=== PATIENT | male | born 1975 | race American Indian/Alaskan Native ===

== ENCOUNTER 2022-04-13 09:59 | Emergency (ER) | payer OTHER ==
[2022-04-13 15:02] VITALS: BP 159/85
--- NOTE | 2022-04-13 15:12 | Emergency Department Report ---
ED General Adult HPI - General Chief complaint: Rectal Pain Stated complaint: BLOOD IN STOOL Time Seen by Provider: 04/13/22 14:56 Source: patient Mode of arrival: Ambulatory Limitations: No Limitations - History of Present Illness Initial comments: 46-year-old black male with no past medical history presents to the emergency department for evaluation of blood in his stool along with rectal pain. He states that over the past 5 years, he has had intermittent pain with bowel movements associated with blood in stool. He states that he has seen an ext ernal hemorrhoid to his rectal area, tried [id number] hemorrhoid creams but has not had any improvement. He states that hemorrhoid, and bloody stools are intermittent and he is not currently having any of those symptoms but did have them several days ago. He denies abdominal pain, nausea, vomiting, diarrhea, fever, and pain with discharge. MD Complaint: Rectal pain -: Gradual, year(s) (5) Severity scale (0 -10): 0 Associated Symptoms: denies: confusion, diaphoresis, fever/chills, headaches, loss of appetite, malaise, nausea/vomiting, shortness of breath, weakness Treatments Prior to Arrival: other (Preparation H) - Related Data Previous Rx's Medication Instructions Recorded Last Taken Type Pramoxine 1% [Proctofoam] 1 applicatio TP 5XD PRN #10 foam 04/13/22 Unknown Rx Allergies Allergy/AdvReac Type Severity Reaction Status Date / Time No Known Allergies Allergy Verified 04/13/22 15:01 ED Review of Systems ROS: Stated complaint: BLOOD IN STOOL Other details as noted in HPI Comment: All other systems reviewed and negative Constitutional: denies: chills, fever Eyes: denies: vision change ENT: denies: congestion Respiratory: denies: orthopnea, shortness of breath, SOB with exertion, SOB at rest, stridor, wheezing Cardiovascular: denies: chest pain, palpitations Gastrointestinal: denies: abdominal pain, nausea, vomiting Genitourinary: denies: urgency, dysuria, frequency, hematuria, discharge, testicular pain Musculoskeletal: denies: back pain Skin: denies: rash, lesions Neurological: denies: headache, weakness, numbness, paresthesias, abnormal gait Hematological/Lymphatic: denies: easy bleeding, easy bruising ED Past Medical Hx - Social History Smoking Status: Never Smoker Substance Use Type: None - Medications Home Medications: Home Medications Medication Instructions Recorded Confirmed Last Taken Type Pramoxine 1% [Proctofoam] 1 applicatio TP 5XD PRN #10 foam 04/13/22 Unknown Rx ED Physical Exam - General Limitations: No Limitations General appearance: alert, in no apparent distress - Head Head exam: Present: atraumatic, normocephalic - Eye Eye exam: Present: normal appearance. Absent: conjunctival injection - Neck Neck exam: Present: normal inspection, full ROM. Absent: tenderness, meningismus, lymphadenopathy - Respiratory Respiratory exam: Present: normal lung sounds bilaterally. Absent: respiratory distress, wheezes, rales, rhonchi, stridor, chest wall tenderness - Cardiovascular Cardiovascular Exam: Present: regular rate, normal heart sounds - GI/Abdominal GI/Abdominal exam: Present: soft, normal bowel sounds. Absent: distended, tenderness, guarding, rebound, rigid - Rectal Rectal exam: Present: deferred (Patient denies any symptoms at this time.) - Extremities Exam Extremities exam: Present: normal inspection - Back Exam Back exam: Present: normal inspection. Absent: CVA tenderness (R), CVA tenderness (L) - Psychiatric Psychiatric exam: Present: normal affect, normal mood - Skin Skin exam: Present: warm, dry, intact, normal color ED Course Vital Signs 04/13/22 04/13/22 04/13/22 10:05 14:57 14:59 Temperature 98.6 F 98.4 F 98.6 F Pulse Rate 84 79 79 Respiratory 18 18 18 Rate Blood Pressure 159/85 Blood Pressure 170/107 119/85 [Right] O2 Sat by Pulse 100 100 100 Oximetry ED Medical Decision Making - Medical Decision Making 46-year-old black male with no past medical history presents to the emergency department for evaluation of blood in his stool along with rectal pain. He states that over the past 5 years, he has had intermittent pain with bowel movements associated with blood in stool. He states that he has seen an external hemorrhoid to his rectal area, tried [id number] hemorrhoid creams but has not had any improvement. He states that hemorrhoid, and bloody stools are intermittent and he is not currently having any of those symptoms but did have them several days ago. He denies abdominal pain, nausea, vomiting, diarrhea, fever, and pain with discharge. Patient advised to apply [id number] witch jose roberto to the area and take medication as prescribed. He is advised to follow-up with primary care provider or at the hemorrhoid treatment center in [place], [place]. He is advised to return to the emergency department for any concerning symptoms. He verbalizes understanding of and agreement with plan of care. Critical care attestation.: If time is entered above; I have spent that time in minutes in the direct care of this critically ill patient, excluding procedure time. ED Disposition Clinical Impression: External hemorrhoid, Rectal pain Disposition: HOME / SELF CARE / HOMELESS Is pt being admited?: No Does the pt Need Aspirin: No Condition: Stable Instructions: Hemorrhoids, [id number] Additional Instructions: Try applying witch jose roberto to the area. Take medications as prescribed. Follow- up with primary care for further evaluation and management. Return to the emergency department as needed. Prescriptions: Pramoxine 1% [Proctofoam] 1 applicatio TP 5XD PRN #10 foam PRN Reason: Hemorrhoids Referrals: [facility]agon[facility] [Other] - 3-5 Days Forms: Work/School Release Form(ED) Time of Disposition: 15:09
== END 2022-04-13 15:47 | disposition home or self-care (01) ==
LOC: ED 09:59
DX: K64.4 Residual hemorrhoidal skin tags (principal); K62.89 Other specified diseases of anus and rectum
CPT/HCPCS: 99282